=== PATIENT | female | born 1980 | race Caucasian/White ===

== ENCOUNTER 2018-07-18 06:09 | Inpatient (IN) | payer OTHER ==
[~2018-07-18] VITALS: Ht 160 cm; Wt 49.9 kg
[~2018-07-18 06:09] MED LIST: LEXAPRO5 MG PO; VITAMIN D350000 UNIT PO
[2018-07-19] MEDS ORDERED: DOCUSATE SODIU100 MG PO (09:30)
[2018-07-19] MEDS ORDERED: ULTRAM50 MG PO (09:30)
== END 2018-07-19 13:05 | disposition home or self-care (01) | DRG 743 ==
LOC: CIR.AMB 06:09 → SURH 15:52 → O/R 15:52 → SURG 16:00 → SURH 17:40
PROVIDERS: ADMIT Obstetrics & Gynecology
PROC: 0UT14ZZ Resection of Left Ovary, Percutaneous Endoscopic Approach (ICD-10-PCS; 2018-07-18)
PROC: 3E0P7GC Introduction of Other Therapeutic Substance into Female Reproductive, Via Natural or Artificial Opening (ICD-10-PCS; 2018-07-18)
PROC: 0UT64ZZ Resection of Left Fallopian Tube, Percutaneous Endoscopic Approach (ICD-10-PCS; principal; 2018-07-18 10:00)
DX: N80.1 Endometriosis of ovary (principal); N73.6 Female pelvic peritoneal adhesions (postinfective)

== ENCOUNTER 2019-06-17 08:03 | Day surgery (SDC) | payer OTHER ==
[~2019-06-17 08:03] MED LIST changes: +DOCUSATE SODIU100 MG PO; +ULTRAM50 MG PO
== END 2019-06-17 18:53 | disposition home or self-care (01) ==
LOC: AMB-ENDOS 08:03
DX: K62.89 Other specified diseases of anus and rectum (principal); K57.30 Diverticulosis of large intestine without perforation or abscess without bleeding

== ENCOUNTER → 2020-11-24 08:00 | Outpatient (CLI) | payer OTHER ==
[~2020-11-24 08:00] MED LIST changes: +MIRALAX PO; +PEPCID AC20 MG PO; +VITAMIN D PO; +[UNRECOGNIZED DRUG - OTHER] PO
== END | disposition home or self-care (01) ==
LOC: LAB 08:00 → ADM 12:00 → CIR.AMB 11-29 10:30 → EDSTATUS 11-29 12:00 → CIR.AMB 11-29 12:00
PROVIDERS: ATTEND Surgery
DX: I10 Essential (primary) hypertension (principal); N80.5 Endometriosis of intestine; R19.4 Change in bowel habit; R63.4 Abnormal weight loss; R10.32 Left lower quadrant pain; K60.1 Chronic anal fissure; K64.2 Third degree hemorrhoids

== ENCOUNTER 2021-01-23 08:35 | Emergency (ER) | payer OTHER ==
[~2021-01-23] VITALS: Ht 157.5 cm; Wt 45.4 kg
== END 2021-01-23 14:27 | disposition home or self-care (01) ==
LOC: ER 08:35
DX: N92.0 Excessive and frequent menstruation with regular cycle (principal); D50.0 Iron deficiency anemia secondary to blood loss (chronic); N80.8 Other endometriosis

== ENCOUNTER 2021-02-18 11:15 | Inpatient (IN) | payer OTHER ==
[~2021-02-18] VITALS: Ht 157.5 cm; Wt 46.3 kg
[2021-02-18] MEDS ORDERED: [UNRECOGNIZED DRUG - OTHER] PO (13:52)
[2021-02-21] MEDS ORDERED: AYGESTIN5 MG (11:02)
[2021-02-21] MEDS ORDERED: MEDROXYPRO150 MG/1 M (11:03)
[2021-02-21] MEDS ORDERED: MEGESTROL ACETA20 MG (11:03)
[2021-02-21] MEDS ORDERED: FAMOTIDINE20 MG (11:03)
[2021-02-21] MEDS ORDERED: ETONOGESTREL-E1 EACH (11:07)
[2021-02-23] MEDS ORDERED: OXYC1TAB9 PO (07:30)
[2021-02-23] MEDS ORDERED: IBU800 MG PO (07:30)
== END 2021-02-23 13:00 | disposition home or self-care (01) | DRG 743 ==
LOC: SURG 02-21 08:22 → O/R 02-21 08:22 → OB/GYN 02-21 10:00 → SURG 02-21 19:10
PROVIDERS: ADMIT Obstetrics & Gynecology Gynecology; ATTEND Obstetrics & Gynecology Gynecology
PROC: 0UB70ZZ Excision of Bilateral Fallopian Tubes, Open Approach (ICD-10-PCS; 2021-02-21)
PROC: 0UT90ZZ Resection of Uterus, Open Approach (ICD-10-PCS; principal; 2021-02-21 10:00)
DX: D25.1 Intramural leiomyoma of uterus (principal); D25.2 Subserosal leiomyoma of uterus; N72 Inflammatory disease of cervix uteri; N92.1 Excessive and frequent menstruation with irregular cycle; D50.0 Iron deficiency anemia secondary to blood loss (chronic); N80.1 Endometriosis of ovary

== ENCOUNTER 2021-10-20 06:41 | Day surgery (SDC) | payer OTHER ==
[~2021-10-20 06:41] MED LIST changes: +AYGESTIN5 MG; +ETONOGESTREL-E1 EACH; +FAMOTIDINE20 MG; +IBU800 MG PO; +MEDROXYPRO150 MG/1 M; +MEGESTROL ACETA20 MG; +OXYC1TAB9 PO; +PEPCID40 MG PO; +PROBIOT PO; +[UNRECOGNIZED DRUG - OTHER] PO
[2021-10-20] MEDS ORDERED: PERCOCET 5-3251 EACH PO (09:09)
[2021-10-20] MEDS ORDERED: RECTICARE30 GM TOP (09:10)
== END 2021-10-20 14:10 | disposition home or self-care (01) ==
LOC: CIR.AMB 06:41
PROVIDERS: ATTEND Surgery
DX: N80.5 Endometriosis of intestine (principal); K60.1 Chronic anal fissure; K64.2 Third degree hemorrhoids; Z20.822 Contact with and (suspected) exposure to COVID-19